=== PATIENT | female | born 1945 | race Caucasian/White ===

== ENCOUNTER → 2018-08-27 | Outpatient (CLI) | payer MEDICARE ==
[~2018-08-27] MED LIST: CONTRAST GIVEN. MC PRN; IOHEXOL 180 MG/ML 10 ML VIAL. IT ONE; LIDOCAINE WITH 8.4% SOD BICARB 3 ML DISP.SYRIN. INJ ONE
[2018-08-27 09:57] VITALS: BP 124/63
--- NOTE | 2018-08-27 13:02 | RAD ---
Lumbar myelogram, 08/27/2018: History: Back and right leg pain Under local anesthesia, aseptic conditions and fluoroscopic guidance a lumbar puncture was performed at the midline through a laminectomy defect at the L3 level utilizing a 25-gauge Samreen spinal needle. Good clear CSF flow was obtained following which 14 cc of Omnipaque 180 was injected into the thecal sac. The spinal needle was then removed and appropriate lumbar imaging performed. The patient tolerated the procedure well and was sent to CT in good condition. 4.8 minutes of fluoroscopy time was utilized. 15 fluoroscopic spot images were recorded. The following findings were delineated on the myelogram: 1. There is a mild right convexity lumbar scoliosis with multilevel disc space narrowing, sclerosis and spurring throughout the lumbar spine. A long midline laminectomy defect is seen from L1 through L5. 2. There are moderate anterior extradural defects at all of the disc levels from L1-2 down through L4-5. 3. There is mild retrolisthesis at L2-3 and L3-4 which does not appear to change significantly on upright lateral flexion and extension views. No high-grade central spinal stenosis is evident. 4. There is poor opacification of the L3, L4 and L5 nerve root sleeves bilaterally. CT of the lumbar spine-post myelogram, 08/27/2018: Multidetector CT imaging was performed with multiplanar reconstructions produced. The following findings are delineated: 1. At T12-L1 and L1-2 there are mild to moderate posterior disc bulges. The central spinal canal is well maintained. There is only mild inferior foraminal narrowing bilaterally at L1-2. 2. At L2-3 there is mild posterior disc bulging. There is slight retrolisthesis. The central spinal canal is well-maintained. There is mild bilateral foraminal narrowing. 3. At L3-4 there is severe degenerative disc disease with a vacuum disc phenomena. There is a small focal posterior disc protrusion laterally on the left. There is mild retrolisthesis. The combination of findings is causing moderate foraminal narrowing, worse on the left. The central spinal canal is not significantly stenotic. 4. At L4-5 there is severe degenerative disc disease with moderate broad-based posterior disc protrusion. There is mild facet joint arthropathy. The central spinal canal is well-maintained. There is considerable bilateral foraminal encroachment which appears to be predominantly due to the protruding disc material. 5. At L5-S1 there is mild posterior disc bulging. There are moderate degenerative changes involving the facet joints bilaterally. There is mild narrowing of the width of the central spinal canal. There is moderate bilateral foraminal encroachment, worse on the right. IMPRESSION: 1. Long lumbar laminectomy from L1 through L5. 2. Severe multilevel degenerative changes as described above. 3. Mild retrolisthesis at L2-3 and L3-4 without significant instability or central spinal stenosis. 4. Foraminal narrowing at multiple levels in the lower lumbar spine, worst on the right at L4-5. PQRS Compliance Statement: One or more of the following individualized dose reduction techniques were utilized for this examination: 1. Automated exposure control 2. Adjustment of the mA and/or kV according to patient size 3. Use of iterative reconstruction technique
== END | disposition home or self-care (01) ==
LOC: RAD 07:55
PROVIDERS: ATTEND Neurological Surgery
DX: M48.061 Spinal stenosis, lumbar region without neurogenic claudication (principal); M51.16 Intervertebral disc disorders with radiculopathy, lumbar region; M43.16 Spondylolisthesis, lumbar region; Z88.0 Allergy status to penicillin; Z88.2 Allergy status to sulfonamides; Z88.8 Allergy status to other drugs, medicaments and biological substances; M41.9 Scoliosis, unspecified
CPT/HCPCS: 72132; 72265; Q9965

== ENCOUNTER → 2018-09-16 | Outpatient (CLI) | payer MEDICARE ==
[2018-08-27 09:57] VITALS: BP 124/63
[~2018-09-16] MED LIST changes: -CONTRAST GIVEN. MC PRN; +GABA300C18 PO; +HYDR200T5 PO; -IOHEXOL 180 MG/ML 10 ML VIAL. IT ONE; +LEVO75TA5 PO; -LIDOCAINE WITH 8.4% SOD BICARB 3 ML DISP.SYRIN. INJ ONE; +LOSA-73 PO; +OMEP40CA5 PO; +TRAM50TA PO
--- NOTE | 2018-09-16 13:26 | EKG ---
[facility] [address] [place] [address] Test Date: 2018-09-16 Test Time: 13:34:24 Pat Name: AVELINA DACOSTA Department: Room: Gender: F Migration Agent: : 1945 Requested By: MELVI COY Order Number: [id number] Reading MD: Kunal Glez MD Measurements Intervals [place] Rate: 86 P: 39 SD: 158 QRS: -13 QRSD: 80 T: 16 QT: 372 QTc: 448 Interpretive Statements SINUS RHYTHM Electronically Signed On 09-21-2018 8:16:32 NETWORK FIREWALL ENGINEER by Kunal Glez MD
[2018-09-16 13:34] LABS: BASO % 1 % (0-3); EOS # 0.3 x10^3/uL (0.0-0.7); EOS % 6 % (0-3); HEMATOCRIT 38.3 % (36.0-47.0); HEMOGLOBIN 13.1 g/dL (12.0-15.5); LYMPH % 26 % (24-48); MEAN CORPUSCULAR HEMOGLOBIN 31 pg (25-35); MEAN CORPUSCULAR HGB CONC 34 g/dL (31-37); MEAN CORPUSCULAR VOLUME 92 fL (79-100); MONO # 0.3 x10^3/uL (0.0-1.1); MONO % 7 % (0-9); NEUT # 2.4 x10^3uL (1.8-7.7); NEUT % 60 % (31-73); PLATELET COUNT 122 x10^3/uL (140-400); RED BLOOD COUNT 4.17 x10^6/uL (3.50-5.40); RED CELL DISTRIBUTION WIDTH 13.7 % (11.5-14.5); WHITE BLOOD COUNT 4.1 x10^3/uL (4.0-11.0)
[2018-09-16 14:03] LABS: ALBUMIN 3.5 g/dL (3.4-5.0); ALBUMIN/GLOBULIN RATIO 1.1 (1.0-1.7); CREATININE 1.2 mg/dL (0.6-1.0); GFR 44.4; POTASSIUM 4.2 mmol/L (3.5-5.1); TOTAL BILIRUBIN 0.4 mg/dL (0.2-1.0); TOTAL PROTEIN 6.7 g/dL (6.4-8.2)
== END | disposition home or self-care (01) ==
LOC: SURGPAT 12:19
PROVIDERS: ATTEND Neurological Surgery
DX: Z01.818 Encounter for other preprocedural examination (principal); M51.36 Other intervertebral disc degeneration, lumbar region; M48.061 Spinal stenosis, lumbar region without neurogenic claudication
CPT/HCPCS: 36415; 80053; 85025; 87641; 93005

== ENCOUNTER 2018-09-24 10:45 | Observation (INO) | payer MEDICARE ==
[2018-09-24] VITALS (8 sets, daily range): BP systolic 91–121; BP diastolic 51–71
[~2018-09-24] VITALS: Ht 152.4 cm; Wt 82.1 kg
--- NOTE | 2018-09-24 07:22 | PREOP HP ---
DATE OF SERVICE: 09/24/2018. DATE OF SURGERY: 09/24/2018. HISTORY OF PRESENT ILLNESS: The patient is a pleasant 73-year-old, who has problems with the right side of her lower back, which is painful for her and that pain radiates into her right buttock, lateral thigh, hip and lateral leg and foot. She notes tingling as well in the right foot. The problem started about one year ago. She rates her pain as a 4-5/10. Mornings are the worst. She takes tramadol and gabapentin. She has had epidural steroid injections for this problem, which she said has helped her for about 1 week. She did physical therapy, which she said it just helped temporarily. In 2012, she underwent lumbar surgery, which was extensive. That surgery did not help her at that time. PAST MEDICAL HISTORY: Arthritis, cold sores, fever blisters, hypertension, stomach and intestinal disease, thyroid disease. PAST SURGICAL HISTORY: Cholecystectomy in 2000, back surgery in 2012, colon surgery 2015, colostomy reversal 2016. Carpal tunnel release, 2017. FAMILY HISTORY: Cancer. SOCIAL HISTORY: Retired. . Denies substance abuse. Drinks alcohol 1-2 times per week. Drinks coffee daily. ALLERGIES: SULFA DRUGS, PENICILLIN AND BETADINE. REVIEW OF SYSTEMS: A 12-point review of systems was obtained and is noncontributory except that mentioned above. PHYSICAL EXAMINATION: NEUROSURGERY EXAMINATION: GENERAL APPEARANCE: Alert, pleasant, no acute distress. HEAD: Normocephalic and atraumatic. SKIN: Warm and dry. MUSCULOSKELETAL: Lumbar paraspinal muscle bulk is normal, restricted range of motion of the lumbar spine, [id number] tenderness of lower lumbar spine with palpation, normal range of motion of the lower extremities bilaterally. EXTREMITIES: No clubbing, cyanosis or edema. NEUROLOGIC: Alert and oriented x 3, normal recent and remote memory. Strength 5/5 in bilateral lower extremities, sensory is intact to light touch in lower extremities bilaterally. Reflexes are present and symmetric in bilateral lower extremities, negative straight leg raising bilaterally, normal gait. IMAGING: I reviewed lumbar myelogram and post-myelogram CT scan. There is a long midline laminectomy defect extending from L1-L5. She has a retrolisthesis at L2-L3 and L3-L4, which does not move on flexion and extension films. At L4-L5 on the right, there appears to be a bone spur related to superior facet process of L5. This does protrude into the canal and appears to decompress the right L5 root. There is also severe foraminal narrowing at that level. ASSESSMENT/PLAN: I believe the problems at L4-L5 on the right are responsible for her right lumbar radiculopathy. My feeling is that a micro-decompressive surgery should be performed at this level. I did speak with her about this approach. I explained to her though that she may end up having further collapse with regard to neural foramen at that level in the future. She may develop further problems with scoliosis. She may require instrumented fusion at some point. She understands. She would like to strongly go ahead. We will make the arrangements. MELVI COY MD DR: BLAKE/mary JOB#: [id number] / [id number] BESSIE
[~2018-09-24 10:45] MED LIST changes: +BACITRACIN 50,000 UNIT in IV NORMAL SALINE 1000ML BAG 1,000 ML IRR ONE; +BUPIVAC MPF-EPI 0.5%-1:200000 30 ML VIAL. ONE; -DOCU-109 PO; +GELATIN SPONGE SIZE 100. ONE; -HYDR-3164 PO; +HYDROmorphone 2 MG/ML VIAL IV PRN; +IV RINGERS,LACTATED 1000ML 1,000 ML IV SCH; +KETOROLAC 60 MG/2 ML INJ FOR OR. ONE; +LIDOCAINE 1% PF 2 ML VIAL. ID PRN; +MORPHINE SULFATE 2 MG/ML VIAL. IV PRN; +ONDANSETRON PF 4 MG/2 ML VIAL. IV PRN; +PROCHLORPERAZINE 10 MG/2 ML VIAL. IV PRN; +THROMBIN TOPICAL 20,000 UNIT SPRAY.SYRN KIT TP ONE; +VANCOMYCIN 1GM IVPB FOR OMNI 250 ML IV PRN; +fentaNYL PF VIAL 100 MCG/2 ML VIAL IV PRN
[2018-09-24] MEDS ORDERED: REMIFENTANIL 2 MG VIAL. IV ONE (11:06)
[2018-09-24] MEDS ORDERED: PHENYLEPHRINE 10 MG/ML VIAL. ONE (11:06)
[2018-09-24] MEDS ORDERED: ROCURONIUM 50 MG/5 ML VIAL. ONE (11:06)
[2018-09-24] MEDS ORDERED: KETOROLAC 30 MG/ML INJ FOR OR. INJ ONE ×2 (11:06)
[2018-09-24] MEDS ORDERED: DEXAMETHASONE SOD PHOS 20 MG/5 ML VIAL. ONE (11:06)
[2018-09-24] MEDS ORDERED: ONDANSETRON PF 4 MG/2 ML VIAL. ONE ×2 (11:06→11:07)
[2018-09-24] MEDS ORDERED: PROPOFOL 20 ML IV ONE (11:06)
[2018-09-24] MEDS ORDERED: DESFLURANE > 120 MINUTES IH ONE (11:06)
[2018-09-24] MEDS ORDERED: PROPOFOL 0 ML IV ONE (11:07)
[2018-09-24] MEDS ORDERED: PROPOFOL 50 ML IV ONE (15:20)
--- NOTE | 2018-09-24 16:51 | DISCH ---
DISCHARGE INSTRUCTIONS Condition on Discharge Condition on Discharge: Stable Activity After Discharge Activity Instructions for Disc: Activity as tolerated, Avoid exertion Other activity instructions: no driving for a week Bathing Instructions: Shower-keep dressing dry Lifting Instructions after Dis: No heavy lifting, No pulling or pushing, Do not lift >10 pounds Driving Instructions after Dis: Do not drive Diet after Discharge Additional Diet Restrictions: resume home diet Wound Incision Care Wound/Incision Care: Ice to area for comfort Other wound/incision instructi: may remove dressing in 48 hrs if dry then may shower, no soaking Contacting the after DC Call your doctor for: Concerns you may have Follow-Up Follow up with: Dr. Coy's nurse in 2 weeks [phone] MELVI COY MD Sep 24, 2018 16:51
[2018-09-24] MEDS ORDERED: HYDR-3164 PO (16:56)
[2018-09-24] MEDS ORDERED: DOCU-109 PO (16:56)
[2018-09-24] MEDS ORDERED: NEOSTIGMINE METHYLSULFATE 5 MG/5 ML SYRINGE. ONE (16:58)
[2018-09-24] MEDS ORDERED: ESMOLOL 100 MG/10 ML VIAL. IV ONE (16:58)
[2018-09-24] MEDS ORDERED: GLYCOPYRROLATE 1 MG/5 ML VIAL. ONE (16:58)
[2018-09-24] MEDS ORDERED: traMADol 50 MG TABLET PO PRN (17:00)
[2018-09-24] MEDS ORDERED: MAGNESIUM HYDROXIDE 2,400 MG/30 ML ORAL.SUSP. PO PRN (17:15)
[2018-09-24] MEDS ORDERED: fentaNYL PF VIAL 100 MCG/2 ML VIAL IV PRN ×2 (17:15)
[2018-09-24] MEDS ORDERED: diphenhydrAMINE HCL 25 MG CAPSULE PO PRN (17:15)
[2018-09-24] MEDS ORDERED: HYDROcodone/APAP 5/325MG 1 TAB TABLET PO PRN (17:15)
[2018-09-24] MEDS ORDERED: ACETAMINOPHEN 325 MG TABLET. PO PRN (17:15)
[2018-09-24] MEDS ORDERED: CALCIUM CARBONATE 500 MG TAB.CHEW PO PRN (17:15)
[2018-09-24] MEDS ORDERED: 0.9 % SODIUM CHLORIDE 10 ML DISP.SYRIN. IV PRN (17:15)
[2018-09-24] MEDS ORDERED: MAG HYDROX/ALUMINUM HYD/SIMETH 30 ML ORAL.SUSP PO PRN (17:15)
[2018-09-24] MEDS: fentaNYL PF VIAL 100 MCG/2 ML VIAL IV PRN ×2 (17:39→18:02)
[2018-09-24] MEDS ORDERED: POTASSIUM CL 20MEQ D5-0.45NACL 1,000 ML IV SCH (18:00)
[2018-09-24] MEDS ORDERED: GABAPENTIN 300 MG CAPSULE. PO SCH (21:00)
[2018-09-24] MEDS: DOCUSATE SODIUM 100 MG CAPSULE. PO SCH (21:07)
[2018-09-24] MEDS: METHOCARBAMOL 750 MG TABLET PO SCH (21:07)
[2018-09-25] MEDS: HYDROcodone/APAP 5/325MG 1 TAB TABLET PO PRN ×3 (00:18→14:01)
[2018-09-25 02:01] VITALS: BP 100/56
[2018-09-25 06:15] VITALS: BP 93/49
[2018-09-25] MEDS ORDERED: LEVOTHYROXINE 75 MCG TABLET PO SCH (07:00)
[2018-09-25] MEDS ORDERED: PANTOPRAZOLE 40 MG TABLET.DR. PO PRN (07:30)
[2018-09-25] MEDS: METHOCARBAMOL 750 MG TABLET PO SCH ×2 (08:52→14:00)
[2018-09-25] MEDS: DOCUSATE SODIUM 100 MG CAPSULE. PO SCH (08:52)
[2018-09-25] MEDS ORDERED: HYDROXYCHLOROQUINE 200 MG TABLET PO SCH (09:00)
[2018-09-25] MEDS ORDERED: LOSARTAN POTASSIUM 50 MG TABLET. PO SCH (09:00)
[2018-09-25 11:05] VITALS: BP 105/59
--- NOTE | 2018-09-25 18:48 | OP ---
DATE OF SURGERY: 09/24/2018 PREOPERATIVE DIAGNOSIS: Lateral recess stenosis and foraminal narrowing, L4-L5 right with severe right lumbar radiculopathy. PREOPERATIVE DIAGNOSIS: Lateral recess stenosis and foraminal narrowing, L4-L5 right with severe right lumbar radiculopathy. OPERATION PERFORMED: Neuroimage-guided right L4-L5 lateral recess and foraminal decompression. The operation was done with EMG monitoring, fluoroscopy, microscopic dissection as well as BrainLAB guidance. SURGEON: Uli Coy M.D. BUSINESS SOLUTIONS CONSULTANT: Lisa Bridges, assisted with the surgery. She assisted with the exposure, the microdecompression as well as the closure. OPERATIVE INDICATIONS: The patient is a very pleasant 73-year-old woman who in the past has undergone an extensive laminectomy extending from L3 through L5. She then developed problems with degenerative scoliosis and severe foraminal narrowing on the right at L4-L5 seen on imaging studies. After considerable discussion, I recommended lumbar microdecompressive surgery at this level. Because of the considerable scar and loss of anatomic landmarks, I felt that the most prudent course would be to perform a microdecompressive operation with BrainLAB guidance to more safely decompress the markedly compressed L4 and L5 nerve roots. In the patient's case, the roots were compressed by a superiorly projecting L5-S1 facet process, which had migrated into the canal and was also associated with considerable foraminal narrowing. I discussed about the surgery and the risks and I explained the technique of the operation, she understood and she wished to go ahead. DESCRIPTION OF PROCEDURE: Following general endotracheal anesthesia, the patient was positioned prone on the Elvis table. Lumbar region prepped and draped in standard fashion. SARAH hose and AV impulse boots were applied for DVT prophylaxis. The microscope was draped. Fluoroscopy was draped and brought into the field. Monitoring was established. Vancomycin 1 g was given preoperatively. An incision was made. The iliac posts were placed into the left iliac crest and the BrainLAB system was initialized, so I then made an incision just lateral to the midline directly over the L4-L5 interspace. I dissected down skin and subcutaneous tissue. I passed down through the adipose tissue. I exposed the fascia, which I incised and then passed through the muscle down to the areas of her previous surgery focusing on the facet and lateral lamina. I brought in the microscope at this time and using microscopic technique, I brought in the high speed air drill. I burred down a generous exposure allowing me to gently drop down through the scar to expose the dura and the projecting facet process. I gently drilled across the base of the process through the microscope protecting the nerve roots as I worked and decompressed the foramen and lateral recess. I was able to free up the facet process and peeled this back and I visualized then the L4 root as it rounded the pedicle and worked laterally and I trimmed along this route to fully decompress the root as well as followed the lateral dura and the L5 root inferiorly to be sure that they were well decompressed. Following this, then I irrigated copiously with antibiotic solution. I explored carefully the roots were very well decompressed after the facet process had been removed. I had excellent hemostasis throughout the operation. I irrigated copiously. I closed the wound in layers with absorbable suture after removing the retractor and assured myself good hemostasis in the muscle layer. The skin was closed with 4-0 subcuticular stitch. The operation went very well and the patient was awakened uneventfully, taken to recovery room in excellent condition. I was quite pleased with the surgery. ULI COY MD DR: BLAKE/mary JOB#: [id number] / [id number] BESSIE
--- NOTE | 2018-09-28 18:08 | PATHOLOGY ---
[facility] Accession Number: [id number] . 01 Material submitted: . LUMBAR DECOMPRESSION . 01 Clinical history: . Lumbar stenosis, herniated disc . 02 Diagnosis: Segments of fibrocartilaginous, fibroadipose, and skeletal muscle tissue and bone, lumbar decompression: - Degenerative changes of fibrocartilaginous tissue. - Atrophic changes of skeletal muscle. (JPM:repairer handtools; 09/28/2018) MBR/09/28/2018 . 02 Comment: There is no evidence of an acute inflammatory process or malignancy. (JPM:repairer handtools; 09/28/2018) . 02 Electronically signed: . Edil Smith MD, Pathologist NPI- [id number] . 01 Gross description: . Received in formalin labeled "Eli [place], lumbar decompression," are several pieces of glistening, fibrous tissue measuring 3.4 x 2.0 x 0.9 cm in aggregate dimensions, containing small fragments of possible bone. The tissue submitted representatively in cassette A1, following decalcification. (TSD; 09/25/2018) TOB/TOB . 02 Pathologist provided ICD-10: M51.36 . 02 CPT . 031630, 038301 Specimen Comment: A courtesy copy of this report has been sent to Specimen Comment: [phone]. Specimen Comment: Report sent to Performed at: 01 [facility] [address], [place] [id number] MD Familia Armstrong MD Phone: [phone] Performed at: 02 [facility] [address] [place], [place] [id number] MD Edil Smith MD Phone: [phone]
== END 2018-09-25 14:05 | disposition home or self-care (01) ==
LOC: SURG 10:45 → 4 NORTH 17:36 → INTOOBSV 17:36 → 4 SOUTHEST 18:34
PROVIDERS: ADMIT Neurological Surgery; ATTEND Neurological Surgery
DX: M48.07 Spinal stenosis, lumbosacral region (principal); M54.16 Radiculopathy, lumbar region; I10 Essential (primary) hypertension; M19.90 Unspecified osteoarthritis, unspecified site; Z90.49 Acquired absence of other specified parts of digestive tract
CPT/HCPCS: 63047; 76000; 88304; 88311; 97162; 97530; A7015; G0378; G0379; G8978; G8979; G8980; J0780; J1100; J1885; J2405; J2704; J2710; J3010; J3370; J3490; J7030

== ENCOUNTER → 2018-09-24 | Outpatient (CLI) | payer MEDICARE ==
[2018-08-27 09:57] VITALS: BP 124/63
[~2018-09-24] MED LIST changes: +DOCU-109 PO; +HYDR-3164 PO
--- NOTE | 2018-09-25 10:34 | RAD ---
CT scan of the lumbar spine without contrast 09/24/2018 CLINICAL HISTORY: Lumbar spinal canal stenosis. Brain lab protocol. TECHNIQUE: Unenhanced, contiguous, 0.625 mm axial sections were obtained through the lumbar spine. 1 mm reconstructed axial and 3 mm sagittal and coronal reconstructed images were obtained. This study was performed to facilitate surgical planning/treatment. One or more of the following individualized dose reduction techniques were utilized for this study: 1. Automated exposure control. 2. Adjustment of the mA and/or kV according to patient size. 3. Use of iterative reconstruction technique. FINDINGS: Comparison is made to a CT lumbar myelogram dated 08/27/2018. Sagittal and coronal reconstructed images demonstrate mild S-shaped curvature of the thoracolumbar spine. The patient is post laminectomy throughout the lumbar spine extending from L1 to L5. Degenerative changes consisting of varying degrees of disc space narrowing, vertebral endplate sclerosis and mild to moderate anterior vertebral body osteophyte formation along with vacuum disc phenomenon are seen throughout the lumbar disc spaces. Atherosclerotic calcification of the abdominal aorta and its branches is seen. On the axial images throughout the lumbar disc spaces, degenerative changes are seen consisting of mild to moderate generalized disc bulges and degenerative changes involving the facet joints.Mild central spinal canal stenosis is seen at L5-S1. Moderate bilateral neural foraminal stenosis is seen at L3-4 and L4-5. Impression: CT study performed to facilitate surgical planning/treatment as outlined above. Electronically signed by: Masoud Rachel MD (09/25/2018 10:30 AM) [id number]
== END | disposition home or self-care (01) ==
LOC: CT 09:56
PROVIDERS: ATTEND Neurological Surgery
DX: M48.061 Spinal stenosis, lumbar region without neurogenic claudication (principal); M48.07 Spinal stenosis, lumbosacral region; I70.0 Atherosclerosis of aorta; M25.78 Osteophyte, vertebrae
CPT/HCPCS: 72131

== ENCOUNTER 2019-03-30 08:19 | Day surgery (SDC) | payer MEDICARE ==
[~2019-03-30] VITALS: Ht 152.4 cm; Wt 74.8 kg
[~2019-03-30 08:19] MED LIST changes: -BACITRACIN 50,000 UNIT in IV NORMAL SALINE 1000ML BAG 1,000 ML IRR ONE; -BUPIVAC MPF-EPI 0.5%-1:200000 30 ML VIAL. ONE; +CETI10TA22 PO; +DEXAMETHASONE SOD PHOS 4 MG/ML VIAL ONE; +DOCU-109 PO; -GELATIN SPONGE SIZE 100. ONE; +HYDR-3164 PO; -KETOROLAC 60 MG/2 ML INJ FOR OR. ONE; -LIDOCAINE 1% PF 2 ML VIAL. ID PRN; +LIDOCAINE 2% PF 5 ML VIAL. ONE; +ONDANSETRON PF 4 MG/2 ML VIAL. ONE; +PROPOFOL 20 ML IV ONE; +RANI-376 PO; -THROMBIN TOPICAL 20,000 UNIT SPRAY.SYRN KIT TP ONE; +VANCOMYCIN 1GM IVPB FOR OMNI 250 ML IV ONE; -VANCOMYCIN 1GM IVPB FOR OMNI 250 ML IV PRN
[2019-03-30] MEDS ORDERED: DEXAMETHASONE SOD PHOS 4 MG/ML VIAL ONE (08:20)
[2019-03-30] MEDS ORDERED: fentaNYL PF VIAL 100 MCG/2 ML VIAL ONE ×2 (08:20→11:14)
[2019-03-30] MEDS ORDERED: ROCURONIUM 50 MG/5 ML VIAL. ONE (08:20)
[2019-03-30] MEDS ORDERED: BUPIVAC MPF-EPI 0.5%-1:200000 30 ML VIAL. ONE (08:50)
[2019-03-30] MEDS ORDERED: OXYC1TAB15 PO (09:52)
--- NOTE | 2019-03-30 09:54 | DISCH ---
DISCHARGE INSTRUCTIONS Condition on Discharge Condition on Discharge: Stable Activity After Discharge Activity Instructions for Disc: Activity as tolerated, Progressive ambulation Driving Instructions after Dis: Do not drive (recommend holding off driving an average of 2 weeks due to reaction time pressing on the brake) Diet after Discharge Diet after Discharge: Regular Additional Diet Restrictions: resume home diet Liquid Texture: Thin Liquid Wound Incision Care Wound/Incision Care: Ice to area for comfort, Change dressing (May remove dressing in 2 days may then shower no soaking until sutures removed) Contacting the DRPatric after DC Call your doctor for: Concerns you may have Follow-Up Follow up with: Tima 1 week Treatment/Equipment after DC Adaptive Equipment Issued: None (has cane and crutches at home as needed) SAEID YANEZ MD Mar 30, 2019 09:54
[2019-03-30] MEDS ORDERED: SEVOFLURANE 31 TO 60 MINUTES. IH ONE (10:59)
[2019-03-30] MEDS: fentaNYL PF VIAL 100 MCG/2 ML VIAL IV PRN ×2 (11:16→11:33)
[2019-03-30] MEDS ORDERED: oxyCODONE/APAP 5/325 1 TAB TABLET PO ONE (11:45)
[2019-03-30 12:12] VITALS: BP 157/68
--- NOTE | 2019-03-30 18:03 | PDOC4 ---
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 Estimated blood loss: 5 mL Complications: None Operative indications: Eli is a 73-year-old female that did have some pre- existing right knee pain suddenly worsened and displayed significant medial joint line pain sometimes severe with mechanical-type symptoms and severe sudden difficulty getting around ever since the exacerbation. MRI had confirmed a posterior horn medial meniscus tear as well as some degenerative changes in the medial compartment. I had gone over with her the rationale for operative treatment of the medial meniscus and the fact that I can't undo degenerative changes and she may have some ongoing symptoms which may need ongoing sympt omatic management. I don't feel that her degenerative changes are severe enough to undergo any type of arthroplasty although she might eventually be a candidate if her medial compartment where remains isolated and becomes more severe for a eventual unicondylar arthroplasty. I covered these options in detail with her given the sudden onset however and the more mechanical type symptoms we did agree to proceed with arthroscopic evaluation and treatment she is aware the risks benefits postoperative course of those and obtained informed consent Operative text: Patient was identified procedure verified patient placed in the supine position on the operating table. After adequate amounts of general anesthesia were administered the right lower extremity was prepped and draped in standard sterile fashion with a thigh tourniquet. After timeout was performed patient procedure identified and verified the right lower extremity was exsanguinated by Esmarch bandage tourniquet inflated to 300 mL mercury a lateral portal was established a medial portal established using spinal needle localization and the knee joint was systematically examined. She was noted to have overall minimal chondromalacia of the patellofemoral joint in good tracking no loose bodies noted in the gutters or suprapatellar pouch area. She did have grade 3 chondromalacia over the weightbearing surface of medial femoral condyle as well as medial tibial plateau as well as a isolated area along the medial weightbearing surface of the medial tibial plateau of grade 4 chondromalacia. She did have a complex tear posterior horn and body of the medial meniscus which was trimmed back to stable tissue using arthroscopic punch and shaver chondroplasty was performed of the needle femoral condyle and no full-thickness defect was noted. ACL was probed and found to be intact she did a free edge tearing of the lateral meniscus with a small radial tear posterior horn area all of which were trimmed back to stable tissue with the arthroscopic punch and shaver. The knee was toured to reveal a well-preserved lateral compartment no loose bodies noted to joint was drained of arthroscopic fluid portals were cl osed with nylon suture portal areas and fat pad were infused with 20 mL of half percent plain Marcaine sterile dressings were applied toes were noted be warm pink find deflation of tourniquet patient was returned to recovery room in stable condition having tolerated procedure well SAEID YANEZ MD Mar 30, 2019 18:03
== END 2019-03-30 12:39 | disposition home or self-care (01) ==
LOC: SURG 08:19
PROVIDERS: ATTEND Orthopaedic Surgery
DX: M23.251 Derangement of posterior horn of lateral meniscus due to old tear or injury, right knee (principal); M23.221 Derangement of posterior horn of medial meniscus due to old tear or injury, right knee; M17.11 Unilateral primary osteoarthritis, right knee; M94.261 Chondromalacia, right knee
CPT/HCPCS: 29880; J0780; J1100; J2001; J2405; J2704; J3010; J3490; A7015; C1782

== ENCOUNTER → 2021-01-29 | Outpatient (CLI) | payer MEDICARE ==
[~2021-01-29] MED LIST changes: -CETI10TA22 PO; +CETI10TA74 PO; +CHOL2400 MC; +CYAN25008 PO; -DEXAMETHASONE SOD PHOS 4 MG/ML VIAL ONE; +HYDR200T71 PO; -HYDROmorphone 2 MG/ML VIAL IV PRN; +IBUP200T58 PO; -IV RINGERS,LACTATED 1000ML 1,000 ML IV SCH; -LIDOCAINE 2% PF 5 ML VIAL. ONE; -MORPHINE SULFATE 2 MG/ML VIAL. IV PRN; +OMEP40CA45 PO; -OMEP40CA5 PO; -ONDANSETRON PF 4 MG/2 ML VIAL. IV PRN; -ONDANSETRON PF 4 MG/2 ML VIAL. ONE; +OXYC10TA PO; +OXYC1TAB15 PO; -PROCHLORPERAZINE 10 MG/2 ML VIAL. IV PRN; -PROPOFOL 20 ML IV ONE; -VANCOMYCIN 1GM IVPB FOR OMNI 250 ML IV ONE; +WARF-31 PO; +WARF4TAB64 PO; -fentaNYL PF VIAL 100 MCG/2 ML VIAL IV PRN
[2021-01-29 09:08] LABS: BASO % 1 % (0-3); EOS # 0.2 x10^3/uL (0.0-0.7); EOS % 5 % (0-3); HEMATOCRIT 37.6 % (36.0-47.0); HEMOGLOBIN 12.7 g/dL (12.0-15.5); LYMPH % 21 % (24-48); MEAN CORPUSCULAR HEMOGLOBIN 32 pg (25-35); MEAN CORPUSCULAR HGB CONC 34 g/dL (31-37); MEAN CORPUSCULAR VOLUME 94 fL (79-100); MONO # 0.3 x10^3/uL (0.0-1.1); MONO % 6 % (0-9); NEUT % 66 % (31-73); PLATELET COUNT 139 x10^3/uL (140-400); RED BLOOD COUNT 4.02 x10^6/uL (3.50-5.40); RED CELL DISTRIBUTION WIDTH 13.6 % (11.5-14.5); WHITE BLOOD COUNT 4.5 x10^3/uL (4.0-11.0)
[2021-01-29 09:23] LABS: PROTHROMBIN TIME PATIENT 12.6 SEC (11.7-14.0)
[2021-01-29 09:46] LABS: ALBUMIN 3.4 g/dL (3.4-5.0); CALCIUM 8.8 mg/dL (8.5-10.1); CREATININE 1.2 mg/dL (0.6-1.0)
[2021-01-29 09:47] LABS: POTASSIUM 4.4 mmol/L (3.5-5.1)
--- NOTE | 2021-01-29 12:28 | EKG ---
[facility] [address] [place] [address] Test Date: 2021-01-29 Test Time: 12:21:45 Pat Name: AVELINA DACOSTA Department: Room: Gender: F Advisory Application Developer: : [id number] Requested By: SAEID YANEZ Order Number: [id number] Reading MD: Eder Gonzalez Measurements Intervals [place] Rate: 88 P: 50 VT: 154 QRS: -12 QRSD: 90 T: 24 QT: 380 QTc: 463 Interpretive Statements SINUS RHYTHM LEFTWARD AXIS Electronically Signed On 01-30-2021 15:43:20 CDT by Eder Gonzalez
--- NOTE | 2021-01-29 14:53 | RAD ---
EXAM: Chest, 2 views. HISTORY: Arthroplasty. COMPARISON: None. FINDINGS: 2 views of the chest are obtained. There is no infiltrate, pleural effusion or pneumothorax . The heart is normal in size. There is mild eventration of the right hemidiaphragm. IMPRESSION: No acute pulmonary finding. Electronically signed by: Tiara Montalvo MD (01/29/2021 2:51 PM) [facility]
[2021-01-29 23:16] LABS: HEMOGLOBIN A1C 4.8 % (4.8-5.6)
== END ==
LOC: SURGPAT 11:44
PROVIDERS: ATTEND Orthopaedic Surgery
DX: Z01.818 Encounter for other preprocedural examination (principal); M17.11 Unilateral primary osteoarthritis, right knee; I10 Essential (primary) hypertension
CPT/HCPCS: 36415; 71046; 80048; 82040; 82306; 83036; 85025; 85610; 85651; 85730; 87641; 93005

== ENCOUNTER → 2021-02-02 | Outpatient (CLI) | payer MEDICARE ==
[~2021-02-02] MED LIST changes: -OXYC10TA PO; -WARF4TAB64 PO
== END ==
LOC: LAB 10:07
PROVIDERS: ATTEND Orthopaedic Surgery
DX: Z01.812 Encounter for preprocedural laboratory examination (principal); M17.11 Unilateral primary osteoarthritis, right knee; Z20.822 Contact with and (suspected) exposure to COVID-19
CPT/HCPCS: U0003; U0005

== ENCOUNTER → 2021-04-04 | Outpatient (CLI) | payer MEDICARE ==
[2021-02-08 12:31] VITALS: BP 125/60
[~2021-04-04] MED LIST changes: -OMEP40CA45 PO; +OMEP40CA7 PO; +OXYC10TA PO; +WARF4TAB64 PO
[2021-04-04 19:56] LABS: BF CLARITY CLOUDY; BF COLOR RED; BF SOURCE SYNOVIAL
[2021-04-04 19:57] LABS: BF MON % 6 %; BF PMN % 94 %; BF RBC COUNT 31000 /cmm (Not Established); BF WBC COUNT 8750 /cmm (Not Established)
== END ==
LOC: SPEC 16:33
PROVIDERS: ATTEND Orthopaedic Surgery
DX: Z96.651 Presence of right artificial knee joint (principal)
CPT/HCPCS: 36415; 87071; 87075; 87116; 89050; 89060